=== PATIENT | male | born 1945 | race Asian ===

== ENCOUNTER 2017-05-09 13:50 | Inpatient (IN) | payer OTHER, MEDICARE ==
[~2017-05-09] VITALS: Ht 165.1 cm; Wt 77.0 kg
[~2017-05-09 13:50] MED LIST: ALLO100T30 PO; AMLO10TA2 PO; ASPI-515 PO; CYCL-259 PO; DEXA4TAB PO; ETOD200C2 PO; GABA300C10 PO; LOSA100T6 PO; METH750T2 PO; OMEP40CA6 PO; ROSU10TA PO
[2017-05-09] MEDS ORDERED: SODIUM CHLORIDE FLUSH 10ML SYR IVF ONE (14:00)
[2017-05-09] MEDS ORDERED: SODIUM CHLORIDE 0.9% 1,000ML IVBOLUS ONE (14:00)
[2017-05-09] MEDS ORDERED: FAMOTIDINE 20 MG/2 ML IVP ONE (14:00)
[2017-05-09] MEDS ORDERED: ONDANSETRON 2MG/ML, 2ML IVPush ONE (14:00)
[2017-05-09] MEDS ORDERED: morphine SULFATE 10 MG/ML, 1ML IVPush ONE (14:00)
[2017-05-09 14:21] LABS: MEAN CORPUSCULAR HEMOGLOBIN 30.7 pg (27.5-34.5); MEAN CORPUSCULAR VOLUME 90.4 fL (81-97); PLATELET COUNT 293 x10^3/uL (130-400); RED BLOOD COUNT 5.04 x10^6/uL (4.38-5.82); RED CELL DISTRIBUTION WIDTH 14.7 % (9.4-14.8)
[2017-05-09 14:33] LABS: ALANINE AMINOTRANSFERASE 50 U/L (12-78); ALBUMIN 4.1 g/dL (3.4-5.0); ANION GAP 10 mmol/L (5-15); CALCIUM 9.2 mg/dL (8.5-10.1); CHLORIDE 105 mmol/L (98-107); CREATININE 0.99 mg/dL (0.7-1.3)
[2017-05-09 14:35] LABS: ALKALINE PHOSPHATASE 78 U/L (45-117); BILIRUBIN,TOTAL 0.7 mg/dL (0.2-1.0); TOTAL PROTEIN 8.4 g/dL (6.4-8.2)
[2017-05-09 14:57] LABS: MD YES
[2017-05-09 15:00] LABS: BAND#(MANUAL) 1.86 x10^3/uL; BANDS%(MANUAL) 10 % (0-7); LYMPHS% (MANUAL) 14 % (22-44); MONOS#(MANUAL) 0.93 x10^3/uL (0.3-2.7); MONOS% (MANUAL) 5 % (2-9); SEG#(MANUAL) 13.21 x10^3/uL (1.8-6.8); SEGS% (MANUAL) 71 % (42-75)
[2017-05-09 15:01] LABS: <PLATELET ESTIMATE> ADEQUATE; <PLT MORPHOLOGY> NORMAL PLT MORPH; ANISOCYTOSIS 1+
[2017-05-09] MEDS ORDERED: ONDANSETRON 2MG/ML, 2ML ONE ×3 (15:12→16:45)
[2017-05-09] MEDS ORDERED: FAMOTIDINE 20 MG/2 ML ONE (15:13)
[2017-05-09] MEDS ORDERED: MORPHINE SULFATE 4 MG/ML, 1ML ONE (15:13)
[2017-05-09] MEDS ORDERED: AMIT10TA PO (15:16)
[2017-05-09] MEDS ORDERED: CEFOTETAN PMX 1GM/50ML 50 ML IV ONE (16:00)
[2017-05-09] MEDS ORDERED: CEFOTETAN PMX 1GM/50ML 50 ML ONE (16:02)
[2017-05-09] MEDS ORDERED: SODIUM CHLORIDE 0.9% 1,000 ML IV ONE (16:18)
[2017-05-09] MEDS ORDERED: SODIUM CHLORIDE FLUSH 10ML SYR IVF PRN (16:30)
[2017-05-09] MEDS ORDERED: BUPIVACAINE/PF 0.5% ONE (16:30)
[2017-05-09] MEDS ORDERED: EPINEPHRINE 1 MG/ML, 1ML ONE (16:30)
[2017-05-09] MEDS ORDERED: FENTANYL PF 100 MCG/2ML ONE ×2 (16:32→17:52)
[2017-05-09] MEDS ORDERED: PROPOFOL 10 MG/ML, 20ML ONE (16:44)
[2017-05-09] MEDS ORDERED: SUCCINYLCHOLINE 20 MG/ML, 10ML ONE (16:45)
[2017-05-09] MEDS ORDERED: DEXAMETHASONE 4 MG/ML, 1ML ONE (16:45)
[2017-05-09] MEDS ORDERED: ROCURONIUM 10 MG/ML,10ML ONE (16:45)
[2017-05-09] MEDS ORDERED: ALBUTEROL SULFATE 2.5 MG/3 ML NPPB PRN (17:00)
[2017-05-09] MEDS ORDERED: ONDANSETRON 2MG/ML, 2ML IVPush PRN ×2 (17:00→18:00)
[2017-05-09] MEDS ORDERED: FENTANYL PF 100 MCG/2ML IV PRN (17:00)
[2017-05-09] MEDS ORDERED: EPHEDRINE 50 MG/ML, 1ML IVPush PRN (17:00)
[2017-05-09] MEDS ORDERED: PROMETHAZINE 25 MG/ML, 1ML IV PRN (17:00)
[2017-05-09] MEDS ORDERED: OXYcodone 5 MG/5 ML ORAL.SOL UDC PO PRN (17:00)
[2017-05-09] MEDS ORDERED: hydrALAzine 20 MG/ML, 1ML IV PRN (17:00)
[2017-05-09] MEDS ORDERED: ACETAMINOPHEN 325 MG TABLET PO PRN ×2 (17:00→18:00)
[2017-05-09] MEDS ORDERED: LABETALOL 5MG/ML, 20ML IV PRN (17:00)
[2017-05-09] MEDS ORDERED: METOPROLOL 1 MG/ML, 5ML IV PRN (17:00)
[2017-05-09] MEDS ORDERED: morphine SULFATE 10 MG/ML, 1ML IV PRN (17:00)
[2017-05-09] MEDS ORDERED: BUPIVACAINE/PF-EPI 0.5% 1:200K INFIL ONE (17:05)
[2017-05-09] MEDS ORDERED: NEOSTIGMINE 1 MG/ML, 10ML ONE (17:15)
[2017-05-09] MEDS ORDERED: GLYCOPYRROLATE 0.4 MG/2 ML, 2ML ONE (17:15)
[2017-05-09] MEDS ORDERED: ACETAMINOPHEN 650 MG/20.3 ML UDC ONE (17:52)
[2017-05-09] MEDS ORDERED: OXYcodone 5 MG/5 ML ORAL.SOL UDC ONE (17:52)
[2017-05-09] MEDS ORDERED: PROMETHAZINE 25 MG/ML, 1ML IM PRN (18:00)
[2017-05-09] MEDS ORDERED: METHOCARBAMOL 750 MG TABLET PO PRN (18:00)
[2017-05-09] MEDS ORDERED: morphine SULFATE 10 MG/ML, 1ML IVPush PRN (18:00)
[2017-05-09] MEDS ORDERED: ENALAPRILAT 1.25 MG/ML, 2ML IVPush PRN (18:00)
[2017-05-09] MEDS ORDERED: LABETALOL 5MG/ML, 20ML IVPush PRN (18:00)
[2017-05-09] MEDS: D5%-0.45NACL+KCL 20MEQ 1,000 ML IV SCH (19:40)
[2017-05-09 19:45] VITALS: BP 121/74
[2017-05-09 20:00] VITALS: BP 119/72
[2017-05-09] MEDS: GABAPENTIN 300 MG CAPSULE PO SCH (21:00)
[2017-05-09] MEDS: AMITRIPTYLINE 10 MG TABLET PO SCH (21:00)
[2017-05-09] MEDS: ATORVASTATIN 20 MG TABLET PO SCH (21:22)
[2017-05-10 00:07] VITALS: BP 118/71
[2017-05-10 03:55] VITALS: BP 118/65
[2017-05-10] MEDS: CEFOTETAN PMX 1GM/50ML 50 ML IVPB SCH ×2 (04:19→15:53)
[2017-05-10] MEDS: D5%-0.45NACL+KCL 20MEQ 1,000 ML IV SCH (04:36)
[2017-05-10] MEDS: OXYcodone/APAP 7.5/325MG TABLET PO PRN ×4 (04:57→19:39)
[2017-05-10 05:22] LABS: MEAN CORPUSCULAR HEMOGLOBIN 30.6 pg (27.5-34.5); MEAN CORPUSCULAR HGB CONC 33.7 g/dL (33.2-36.2); MEAN CORPUSCULAR VOLUME 90.8 fL (81-97); MEAN PLATELET VOLUME 7.2 fL (7.4-10.4); PLATELET COUNT 264 x10^3/uL (130-400); RED BLOOD COUNT 4.52 x10^6/uL (4.38-5.82); RED CELL DISTRIBUTION WIDTH 14.9 % (9.4-14.8)
[2017-05-10 06:31] LABS: MD YES
[2017-05-10 06:34] LABS: BAND#(MANUAL) 2.24 x10^3/uL; BANDS%(MANUAL) 12 % (0-7); BASOS#(MANUAL) 0.19 x10^3/uL (0-0.1); BASOS% (MANUAL) 1 % (0-1); LYMPH#(MANUAL) 1.87 x10^3/uL (1-3.4); LYMPHS% (MANUAL) 10 % (22-44); MONOS#(MANUAL) 1.31 x10^3/uL (0.3-2.7); MONOS% (MANUAL) 7 % (2-9); SEG#(MANUAL) 13.09 x10^3/uL (1.8-6.8); SEGS% (MANUAL) 70 % (42-75)
[2017-05-10 06:35] LABS: <PLATELET ESTIMATE> ADEQUATE; <PLT MORPHOLOGY> NORMAL PLT MORPH; ANISOCYTOSIS 1+
[2017-05-10 07:45] VITALS: BP 144/81
[2017-05-10] MEDS: ALLOPURINOL 100 MG TABLET PO SCH (07:55)
[2017-05-10] MEDS: OMEPRAZOLE 20 MG CAPSULE.DR PO SCH (07:56)
[2017-05-10] MEDS: GABAPENTIN 300 MG CAPSULE PO SCH ×3 (07:56→21:08)
[2017-05-10] MEDS: AMLODIPINE 5 MG TABLET PO SCH (07:56)
[2017-05-10] MEDS: LOSARTAN 50MG TABLET PO SCH (07:58)
[2017-05-10 14:10] VITALS: BP 119/71
[2017-05-10] MEDS: AMITRIPTYLINE 10 MG TABLET PO SCH (21:00)
[2017-05-10] MEDS ORDERED: AMITRIPTYLINE 25 MG TABLET ONE (21:06)
[2017-05-10] MEDS: ATORVASTATIN 20 MG TABLET PO SCH (21:08)
[2017-05-10 21:55] VITALS: BP 124/78
[2017-05-11] MEDS: CEFOTETAN PMX 1GM/50ML 50 ML IVPB SCH (03:44)
[2017-05-11 03:46] VITALS: BP 103/61
[2017-05-11 05:09] LABS: BASOPHILS # (AUTO) 0.05 x10^3/uL (0-0.1); BASOPHILS % (AUTO) 0 % (0-1); EOSINOPHILS # (AUTO) 0.23 x10^3/uL (0-0.4); EOSINOPHILS % (AUTO) 2 % (1-7); LYMPHOCYTES % (AUTO) 20 % (22-44); MD NO; MEAN CORPUSCULAR HEMOGLOBIN 30.9 pg (27.5-34.5); MEAN CORPUSCULAR HGB CONC 33.8 g/dL (33.2-36.2); MEAN CORPUSCULAR VOLUME 91.3 fL (81-97); MEAN PLATELET VOLUME 7.1 fL (7.4-10.4); MONOCYTES # (AUTO) 1.15 x10^3/uL (0.2-0.8); MONOCYTES % (AUTO) 9 % (2-9); NEUTROPHILS % (AUTO) 68 % (42-75); PLATELET COUNT 254 x10^3/uL (130-400); RED BLOOD COUNT 4.36 x10^6/uL (4.38-5.82); RED CELL DISTRIBUTION WIDTH 15.2 % (9.4-14.8)
[2017-05-11 08:41] VITALS: BP 111/60
[2017-05-11] MEDS: GABAPENTIN 300 MG CAPSULE PO SCH (09:23)
[2017-05-11] MEDS: AMLODIPINE 5 MG TABLET PO SCH (09:23)
[2017-05-11] MEDS: ALLOPURINOL 100 MG TABLET PO SCH (09:23)
[2017-05-11] MEDS: LOSARTAN 50MG TABLET PO SCH (09:23)
[2017-05-11] MEDS: OMEPRAZOLE 20 MG CAPSULE.DR PO SCH (09:23)
[2017-05-11] MEDS ORDERED: OXYC-306 PO (09:55)
[2017-05-11] MEDS ORDERED: METR500T PO (09:56)
[2017-05-11] MEDS ORDERED: AMOX1TAB64 PO (09:56)
== END 2017-05-11 10:20 | disposition home or self-care (01) | DRG 340 ==
LOC: ED 15:00 → EDIP 16:18 → 4NOR 18:32
PROVIDERS: ADMIT Surgery; ATTEND Surgery
PROC: 0DTJ4ZZ Resection of Appendix, Percutaneous Endoscopic Approach (ICD-10-PCS; principal; 2017-05-09 16:30)
DX: K35.3 Acute appendicitis with localized peritonitis (principal); E78.00 Pure hypercholesterolemia, unspecified; I10 Essential (primary) hypertension; K21.9 Gastro-esophageal reflux disease without esophagitis; M10.9 Gout, unspecified; Z86.73 Personal history of transient ischemic attack (TIA), and cerebral infarction without residual deficits; Z87.11 Personal history of peptic ulcer disease
CPT/HCPCS: 36415; 74177; 80053; 83690; 85025; 88304; 96361; 96374; 96375; J0171; J1100; J2405; J2704; J2710; J3010; J3490; J0330; J2270; J3480; J7030; S0028; S0074